=== PATIENT | male | born 1965 | race Caucasian/White ===

== ENCOUNTER 2016-08-18 23:33 | Emergency (ER) | payer SELFPAY ==
[~2016-08-18] VITALS: Ht 180.3 cm; Wt 98.0 kg
[2016-08-18 23:36] VITALS: BP 148/100
== END 2016-08-19 01:15 | disposition home or self-care (01) ==
LOC: ER 23:38
DX: M54.6 Pain in thoracic spine (principal)
CPT/HCPCS: 99282; A4606; Z7610